=== PATIENT | male | born 1960 | race Caucasian/White ===

== ENCOUNTER 2017-11-18 10:35 | Emergency (ER) | payer BC, OTHER ==
[~2017-11-18] VITALS: Ht 177.8 cm; Wt 86.6 kg
[~2017-11-18 10:35] MED LIST: BENADRYL; HYDR-757 PO; IBP600T1 PO; MINO100C6 PO; OMEP-10 PO; ONDA8TAB9 PO; POLY119P PO; TMSL.4C PO; TRM50T PO
[2017-11-18] MEDS ORDERED: CIPR-225 PO (10:57)
[2017-11-18] MEDS ORDERED: LISI10TA2 PO (10:57)
[2017-11-18] MEDS ORDERED: NS IV 1000 ML 1,000 ML IV SCH (11:36)
--- NOTE | 2017-11-18 12:17 | Diagnostic Imaging Report ---
CLINICAL INDICATION: Patient with fever and chills, congestion, runny nose, times approximately two weeks. EXAM: Chest x-ray PA and lateral views. COMPARISONS: None. FINDINGS: Lungs/pleura: Lungs are clear. There is no pneumothorax. There is no pleural effusion. Mediastinum: Unremarkable. Pulmonary vasculature: Unremarkable. Heart: Unremarkable. Bones/extrathoracic soft tissue: There are small degenerative spurs involving the thoracic spine. IMPRESSION: There is no radiographic evidence of acute cardiopulmonary process. Dictated by: Dictated on workstation # [id number]
[2017-11-18 12:34] LABS: BASOPHILS % (AUTO) 0 % (0-10); EOSINOPHILS % (AUTO) 0 % (0-10); HEMATOCRIT 48 % (40-54); HEMOGLOBIN 16.6 G/DL (13.3-17.7); LYMPHOCYTES # (AUTO) 0.8 X 10^3 (1.0-4.0); LYMPHOCYTES % (AUTO) 10 % (12-44); MEAN CORPUSCULAR HEMOGLOBIN 31 PG (25-34); MEAN CORPUSCULAR HGB CONC 34 G/DL (32-36); MEAN CORPUSCULAR VOLUME 90 FL (80-99); MEAN PLATELET VOLUME 9.7 FL (7.4-10.4); MONOCYTES # (AUTO) 0.8 X 10^3 (0.0-1.0); MONOCYTES % (AUTO) 10 % (0-12); NEUTROPHILS # (AUTO) 6.4 X 10^3 (1.8-7.8); NEUTROPHILS % (AUTO) 80 % (42-75); PLATELET COUNT 216 10^3/uL (130-400); RED BLOOD COUNT 5.38 10^6/uL (4.35-5.85); RED CELL DISTRIBUTION WIDTH 13.5 % (10.0-14.5); WHITE BLOOD COUNT 8.1 10^3/uL (4.3-11.0)
[2017-11-18 12:48] LABS: BUN/CREATININE RATIO 9; CALCIUM 9.7 MG/DL (8.5-10.1); CARBON DIOXIDE 23 MMOL/L (21-32); CHLORIDE 107 MMOL/L (98-107); CREATININE SERUM 1.12 MG/DL (0.60-1.30); GFR ESTIMATED > 60; GLUCOSE 146 MG/DL (70-105); POTASSIUM 4.1 MMOL/L (3.6-5.0); SODIUM 135 MMOL/L (135-145)
--- NOTE | 2017-11-18 13:04 | ED General ---
General Chief Complaint: Cough/Cold/Flu Symptoms Stated Complaint: NOT FEELING WELL,COLLAPSED ON FLOOR LAST NIGHT Nursing Triage Note: PT REPORTS COUGH/COLD CONGESTION X 5 DAYS. REPORTS WAS TOLD HE HAD A URI AT HIS DR OFFICE MONDAY AND PRESCRIBED CIPRO. PT REPROTS HE STILL DOES NOT FEEL WELL. Nursing Sepsis Screen: No Definite Risk Source of Information: Patient Exam Limitations: No Limitations History of Present Illness Date Seen by Provider: Nov 18, 2017 Time Seen by Provider: 11:27 Initial Comments This 57-year-old gentleman presents to the emergency room with generally feeling ill for about 2 weeks and fighting an upper respiratory infection. Last night he was very dizzy and fell without any significant injury. He did not lose consciousness. He has had runny nose, sore throat, cough, and congestion. He saw his primary care provider on and was started on Cipro and Claritin. Overall he states he is improving area and his primary care providers Dr. Velarde. Allergies and Home Medications Allergies Uncoded Allergies: PENICILLIN (Allergy, Unknown, 12/13/13) Home Medications Lisinopril 10 Mg Tablet, 10 MG PO DAILY, (Reported) Patient Home Medication List Home Medication List Reviewed: Yes Constitutional: no symptoms reported EENTM: see HPI Respiratory: see HPI Cardiovascular: see HPI Gastrointestinal: no symptoms reported Genitourinary: no symptoms reported Musculoskeletal: no symptoms reported Skin: no symptoms reported Psychiatric/Neurological: See HPI Hematologic/Lymphatic: No Symptoms Reported Immunological/Allergic: no symptoms reported Past Wuvascb-Trkklv-Vmyrio Hx Patient Social History Alcohol Use: Denies Use Recreational Drug Use: No Smoking Status: Never a Smoker Recent Foreign Travel: No Contact w/Someone Who Travel: No Recent Infectious Disease Expo: No Physical Abuse: No Sexual Abuse: No Mistreated: No Fear: No Immunizations Up To Date Tetanus Booster (TDap): More than 5yrs Surgeries History of Surgeries: Yes (FB REMOVAL) Respiratory History of Respiratory Disorde: No Cardiovascular History of Cardiac Disorders: Yes Cardiac Disorders: Hypertension Neurological History of Neurological Disord: No Genitourinary History of Genitourinary Disor: Yes Genitourinary Disorders: Kidney Stones Gastrointestinal History of Gastrointestinal Di: Yes Gastrointestinal Disorders: Gastroesophageal Reflux Musculoskeletal History of Musculoskeletal Dis: Yes (SCIATICA) Musculoskeletal Disorders: Chronic Back Pain Endocrine History of Endocrine Disorders: No HEENT History of HEENT Disorders: No Cancer History of Cancer: No Psychosocial History of Psychiatric Problem: No Suicide Risk Score: 0 Integumentary History of Skin or Integumenta: No Blood Transfusions History of Blood Disorders: No Family Medical History Significant Family History: No Pertinent Family Hx Physical Exam Vital Signs Vital Signs - First Documented 11/18/17 11/18/17 10:48 10:57 Temp 97.4 Pulse 93 Resp 18 B/P (MAP) 146/83 (104) Pulse Ox 98 O2 Delivery Room Air Capillary Refill : Less Than 3 Seconds General Appearance: No Apparent Distress, WD/WN HEENT: PERRL/EOMI, TMs Normal, Normal ENT Inspection, Pharynx Normal Neck: Normal Inspection Respiratory: Lungs Clear, Normal Breath Sounds, No Accessory Muscle Use, No Respiratory Distress Cardiovascular: Regular Rate, Rhythm, No Edema, No Murmur Gastrointestinal: Normal Bowel Sounds, Non Tender, Soft Extremity: Normal Inspection, No Pedal Edema Neurologic/Psychiatric: Alert, Oriented x3, No Motor/Sensory Deficits, Normal Mood/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, 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 as Tested Skin: Normal Color, Warm/Dry Progress/Results/Core Measures Suspected Sepsis Recent Fever Within 48 Hours: No Infection Criteria Present: Documented Infection New/Unexplained Altered Menta: No Sepsis Screen: No Definite Risk Sepsis Diagnosis: SIRS Temperature:97.4 Pulse: 93 Respiratory Rate: 18 Laboratory Tests 11/18/17 12:24: White Blood Count 8.1 Blood Pressure 146 /83 Mean: 104 Laboratory Tests 11/18/17 12:24: Creatinine 1.12, Platelet Count 216 Results/Orders Lab Results Laboratory Tests Test 11/18/17 11:36 11/18/17 12:24 Range/Units Group A Streptococcus Screen NEGATIVE NEGATIVE White Blood Count 8.1 4.3-11.0 10^3/uL Red Blood Count 5.38 4.35-5.85 10^6/uL Hemoglobin 16.6 13.3-17.7 G/DL Hematocrit 48 40-54 % Mean Corpuscular Volume 90 80-99 FL Mean Corpuscular Hemoglobin 31 25-34 PG Mean Corpuscular Hemoglobin Concent 34 32-36 G/DL Red Cell Distribution Width 13.5 10.0-14.5 % Platelet Count 216 130-400 10^3/uL Mean Platelet Volume 9.7 7.4-10.4 FL Neutrophils (%) (Auto) 80 H 42-75 % Lymphocytes (%) (Auto) 10 L 12-44 % Monocytes (%) (Auto) 10 0-12 % Eosinophils (%) (Auto) 0 0-10 % Basophils (%) (Auto) 0 0-10 % Neutrophils # (Auto) 6.4 1.8-7.8 X 10^3 Lymphocytes # (Auto) 0.8 L 1.0-4.0 X 10^3 Monocytes # (Auto) 0.8 0.0-1.0 X 10^3 Eosinophils # (Auto) 0.0 0.0-0.3 10^3/uL Basophils # (Auto) 0.0 0.0-0.1 10^3/uL Sodium Level 135 135-145 MMOL/L Potassium Level 4.1 3.6-5.0 MMOL/L Chloride Level 107 98-107 MMOL/L Carbon Dioxide Level 23 21-32 MMOL/L Anion Gap 5 5-14 MMOL/L Blood Urea Nitrogen 10 7-18 MG/DL Creatinine 1.12 0.60-1.30 MG/DL Estimat Glomerular Filtration Rate > 60 BUN/Creatinine Ratio 9 Glucose Level 146 H 70-105 MG/DL Calcium Level 9.7 8.5-10.1 MG/DL Troponin I < 0.30 <0.30 NG/ML Micro Results Microbiology 11/18/17 Influenza Types A,B Antigen (EN) - Final, Complete My Orders Orders - YOUSIF SABILLON MD Basic Metabolic Panel (11/18/17 11:36) Cbc With Automated Diff (11/18/17 11:36) Rapid Strep A Screen (11/18/17 11:36) Influenza A And B Antigens (11/18/17 11:36) Chest Pa/Lat (2 View) (11/18/17 11:36) Saline Lock/Iv-Start (11/18/17 11:36) Ns Iv 1000 Ml (Sodium Chloride 0.9%) (11/18/17 11:36) Troponin I (11/18/17 11:37) Ekg Tracing (11/18/17 11:37) Monitor-Rhythm Ecg Trace Only (11/18/17 11:37) Vital Signs/I&O Vital Sign - Last 12Hours 11/18/17 11/18/17 11/18/17 10:48 10:57 13:31 Temp 97.4 98.2 Pulse 93 74 Resp 18 20 B/P (MAP) 146/83 (104) 135/81 Pulse Ox 98 98 O2 Delivery Room Air Capillary Refill : Less Than 3 Seconds Blood Pressure Mean: 104 Progress Note : Progress Note Workup was unremarkable. Patient felt better after receiving a liter of IV fluids. He was discharged to outpatient follow-up. ECG Initial ECG Impression Date: Nov 18, 2017 Initial ECG Impression Time: 11:45 Initial ECG Rate: 79 Initial ECG Rhythm: Normal Sinus Initial ECG Impression: Normal Comment Normal sinus rhythm with no ST elevation or depression. No abnormal intervals or axis deviation. Diagnostic Imaging Diagonstic Imaging: Xray Plain Films/CT/US/NM/MRI: chest Comments Chest x-ray viewed by me and report reviewed. See report below: NAME: [facility] REC#: [id number] PT STATUS: REG ER : 1960 PHYSICIAN: YOUSIF SABILLON MD ADMIT DATE: 11/18/17/ER Draft Date of Exam:11/18/17 CHEST PA/LAT (2 VIEW) CLINICAL INDICATION: Patient with fever and chills, congestion, runny nose, times approximately two weeks. EXAM: Chest x-ray PA and lateral views. COMPARISONS: None. FINDINGS: Lungs/pleura: Lungs are clear. There is no pneumothorax. There is no pleural effusion. Mediastinum: Unremarkable. Pulmonary vasculature: Unremarkable. Heart: Unremarkable. Bones/extrathoracic soft tissue: There are small degenerative spurs involving the thoracic spine. IMPRESSION: There is no radiographic evidence of acute cardiopulmonary process. Dictated on workstation # [id number] Dict: 11/18/17 1214 Trans: 11/18/17 1216 [facility] [id number] Interpreted by: IRVIN KEE MD Departure Impression Impression: Primary Impression: Upper respiratory infection Qualified Codes: J06.9 - Acute upper respiratory infection, unspecified Additional Impression: Lightheadedness Disposition: 01 HOME, SELF-CARE Condition: Improved Departure-Patient Inst. Decision time for Depature: 13:25 Referrals: YASH VELARDE DO (PCP/Family) Primary Care Physician Patient Instructions: Viral Upper Respiratory Infection, Adult (DC) Add. Discharge Instructions: Drink plenty of clear liquids. Follow-up with your primary care provider early this next week. Return to emergency room if symptoms worsen. All discharge instructions reviewed with patient and/or family. Voiced understanding. YOUSIF SABILLON MD Nov 18, 2017 13:04
[2017-11-18 13:31] VITALS: BP 135/81
== END 2017-11-18 13:31 | disposition home or self-care (01) ==
LOC: ER 10:35
DX: J06.9 Acute upper respiratory infection, unspecified (principal); R42 Dizziness and giddiness; K21.9 Gastro-esophageal reflux disease without esophagitis; I10 Essential (primary) hypertension; Z87.442 Personal history of urinary calculi; Z88.0 Allergy status to penicillin
CPT/HCPCS: 36415; 71046; 80048; 84484; 85025; 87430; 87804; 93005; 93041; 96360